=== PATIENT | male | born 1965 | race Caucasian/White ===

== ENCOUNTER 2017-02-22 18:13 | Emergency (ER) | payer SELFPAY ==
[~2017-02-22] VITALS: Ht 170.2 cm; Wt 68.0 kg
[2017-02-22 19:33] VITALS: BP 102/69
== END 2017-02-22 19:33 | disposition left against medical advice (07) ==
LOC: ED 18:13
DX: F10.129 Alcohol abuse with intoxication, unspecified (principal)

== ENCOUNTER 2018-03-03 02:39 | Inpatient (IN) | payer MEDICAID ==
[~2018-03-03] VITALS: Ht 170.2 cm; Wt 64.9 kg
[2018-03-03 02:46] VITALS: Ht 170.2 cm; Wt 64.9 kg
[2018-03-03 04:17] LABS: CALCIUM 7.9 mg/dL (8.5-10.1); CARBON DIOXIDE 25.1 mmol/L (21-32); CHLORIDE SERUM 104 mmol/L (98-107); CREATININE SERUM 0.9 mg/dL (0.7-1.3); GFR1 > 60 mL/min; GLUCOSE SERUM 82 mg/dL (74-106); POTASSIUM SERUM 3.5 mmol/L (3.5-5.1); SODIUM SERUM 140 mmol/L (136-145)
[2018-03-03 04:21] LABS: BASOPHIL % 0.3 % (0-2); PLATELET COUNT 179 x10^3mcL (130-400)
[2018-03-03 04:24] LABS: RED CELL DISTRIBUTION WIDTH 15.6 % (11.5-14.5)
[2018-03-03 04:25] LABS: ALBUMIN 3.7 g/dL (3.4-5.0); ALKALINE PHOSPHATASE 106 U/L (46-116); ALT/SGPT 37 U/L (16-63); AST/SGOT 33 U/L (15-37); TOTAL PROTEIN, SERUM 7.5 g/dL (6.4-8.2)
[2018-03-03] MEDS ORDERED: LORAZEPAM0.5 MG (06:13)
[2018-03-03] MEDS ORDERED: SEROQUEL25 MG (06:13)
[2018-03-03 08:10] VITALS: BP 140/72
[2018-03-03 12:00] VITALS: BP 121/80
[2018-03-03 12:20] LABS: microscopic required? NO
[2018-03-03 13:05] LABS: UA SPECIFIC GRAVITY >=1.030 (1.005-1.035); urine erythrocyte NEGATIVE (NEGATIVE)
[2018-03-03 13:59] LABS: AMPHETAMINE QUAL UR POSITIVE (See below)
[2018-03-03 18:01] VITALS: BP 123/68
[2018-03-03 19:30] VITALS: BP 116/61
[2018-03-04 06:02] VITALS: BP 111/62
[2018-03-04 06:29] LABS: CARBON DIOXIDE 28.4 mmol/L (21-32); CHLORIDE SERUM 101 mmol/L (98-107); CREATININE SERUM 0.9 mg/dL (0.7-1.3); GFR1 > 60 mL/min; GLUCOSE SERUM 88 mg/dL (74-106); MAGNESIUM 2.3 mg/dL (1.8-2.4); PHOSPHOROUS 2.9 mg/dL (2.5-4.9); POTASSIUM SERUM 4.1 mmol/L (3.5-5.1); SODIUM SERUM 134 mmol/L (136-145)
[2018-03-04 06:36] LABS: BASOPHIL % 0.4 % (0-2); PLATELET COUNT 171 x10^3mcL (130-400)
[2018-03-04 07:48] LABS: RED CELL DISTRIBUTION WIDTH 14.7 % (11.5-14.5)
[2018-03-04 09:02] VITALS: BP 109/60
[2018-03-04 11:27] VITALS: BP 116/72
[2018-03-04 16:18] VITALS: BP 129/66
[2018-03-04 19:15] VITALS: BP 99/70
[2018-03-05 05:19] VITALS: BP 94/61
[2018-03-05 06:59] LABS: CALCIUM 8.1 mg/dL (8.5-10.1); CARBON DIOXIDE 28.4 mmol/L (21-32); CHLORIDE SERUM 105 mmol/L (98-107); CREATININE SERUM 0.8 mg/dL (0.7-1.3); GFR1 > 60 mL/min; GLUCOSE SERUM 95 mg/dL (74-106); LIPASE 264 IU/L (73-393); PHOSPHOROUS 2.9 mg/dL (2.5-4.9); POTASSIUM SERUM 4.3 mmol/L (3.5-5.1); SODIUM SERUM 137 mmol/L (136-145)
[2018-03-05 07:12] LABS: BASOPHIL % 0.4 % (0-2)
[2018-03-05 07:58] LABS: PLATELET COUNT 129 x10^3mcL (130-400); RED CELL DISTRIBUTION WIDTH 15.7 % (11.5-14.5)
[2018-03-05] MEDS ORDERED: LIB25 PO (08:11)
[2018-03-05] MEDS ORDERED: ATIVAN1 MG PO (08:12)
[2018-03-05] MEDS ORDERED: NATURE'S BLEND F1 MG PO (08:34)
[2018-03-05] MEDS ORDERED: THI100 PO (08:34)
[2018-03-05 08:58] VITALS: BP 101/66
[2018-03-05 11:33] VITALS: BP 101/66
== END 2018-03-05 12:39 | disposition home or self-care (01) | DRG 775 ==
LOC: ED 02:39 → DU 07:19
PROVIDERS: Emergency Medicine; Internal Medicine
DX: F10.239 Alcohol dependence with withdrawal, unspecified (principal); E83.51 Hypocalcemia; S00.83XA Contusion of other part of head, initial encounter; R51 Headache; R42 Dizziness and giddiness; F20.9 Schizophrenia, unspecified; T51.0X1A Toxic effect of ethanol, accidental (unintentional), initial encounter; Y04.2XXA Assault by strike against or bumped into by another person, initial encounter; Y93.89 Activity, other specified; Y92.89 Other specified places as the place of occurrence of the external cause
CPT/HCPCS: 90658; C9113; J2060; J2405; J3411; J3475; J3490; J7030